=== PATIENT | male | born 2000 | race Caucasian/White ===

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

== ENCOUNTER 2019-04-16 08:35 | Emergency (ER) | payer OTHER ==
[~2019-04-16] VITALS: Ht 185.4 cm; Wt 63.5 kg
--- NOTE | ~2019-04-16 | EKG ---
[place], [place] ELECTROCARDIOGRAM REPORT NAME: MELANIE PARMAR UNIT #: [id number] ROOM: DOCTOR: EPIPHANY DRAFT REPORT BIRTHDATE: [birth year] [facility] Test Date: 2019-04-16 Test Time: 08:45:56 Pat Name: MELANIE PARMAR Department: Room: Gender: M [employer]: : 2000 Requested By: DANY IVEY Order Number: [id number] Reading MD: Raj Jackson MD Measurements Intervals [place] Rate: 52 P: 41 MS: 186 QRS: 37 QRSD: 110 T: 50 QT: 453 QTc: 422 Interpretive Statements Sinus arrhythmia Nonspecific ST T changes Electronically Signed On 04-18-2019 4:13:36 PDT by Raj Jackson MD CM:EKGRPT:ELECTROCARDIOGRAM REPORT [id number] DANY IVEY MD EPIPHANY DRAFT REPORT DANY IVEY MD
[2019-04-16 08:55] LABS: BASO % 0.3 % (0.0-1.0); EOS # 0.1 10*3/uL (0.0-0.4); HEMATOCRIT 39.2 % (42.0-52.0); HEMOGLOBIN 13.6 g/dl (14.0-18.0); LYMPH # 2.8 10*3/uL (1.3-4.4); LYMPH % 28.7 % (27.0-41.0); MEAN CELL VOLUME 88.5 fl (80.0-94.0); MEAN CORPUSCULAR HGB 30.7 pg (27.0-31.0); MEAN CORPUSCULAR HGB CONC 34.7 g/dl (33.0-37.0); MEAN PLATELET VOLUME 10.7 fl (9.6-12.3); MONO # 1.1 10*3/uL (0.1-1.0); MONO % 11.2 % (3.0-9.0); NEUT # 5.7 10*3/uL (2.3-7.9); NEUT % 58.6 % (47.0-73.0); PLATELET COUNT AUTOMATED 220 10*3/uL (130-400); RED BLOOD COUNT 4.43 10*6/uL (4.50-5.90); RED CELL DISTRI WIDTH 11.9 % (0-14.5); WHITE BLOOD COUNT 9.8 10*3/uL (4.8-10.8)
[2019-04-16 09:11] LABS: ACT PARTIAL THROMBO TIME 29.3 SECONDS (20.0-32.1)
[2019-04-16 09:14] LABS: ALBUMIN 4.5 gm/dl (3.1-4.5); ALKALINE PHOSPHATASE 93 U/L (45-117); BUN 22 mg/dl (7-24); CHLORIDE 106 mmol/L (98-107); POTASSIUM 3.5 mmol/L (3.5-5.1); SGOT/AST 16 IU/L (3-35); SGPT/ALT 17 U/L (12-78); SODIUM 139 mmol/L (136-145); TOTAL PROTEIN 7.5 gm/dL (6.4-8.2)
[2019-04-16 09:19] LABS: TROPONIN I < 0.015 ng/ml (<0.045)
[2019-04-16 11:24] LABS: URINE AMPHETAMINES < 1000 (1000ng/ml); URINE BARBITURATES < 200 (200ng/ml); URINE BENZODIAZEPINES < 200 (200ng/ml); URINE CANNABINOIDS (THC) > 50 (50ng/ml); URINE COCAINE < 300 (300ng/ml); URINE METHADONE < 300 (300ng/ml); URINE OPIATES < 300 (300ng/ml)
[2019-04-16 11:26] LABS: URINE PHENCYCLIDINE < 25 (25ng/ml)
== END 2019-04-16 11:43 | disposition home or self-care (01) ==
LOC: ED 08:35
PROVIDERS: Emergency Medicine
DX: R42 Dizziness and giddiness (principal); R55 Syncope and collapse; R07.89 Other chest pain; R06.02 Shortness of breath; R00.1 Bradycardia, unspecified; F17.200 Nicotine dependence, unspecified, uncomplicated; F12.10 Cannabis abuse, uncomplicated; R11.10 Vomiting, unspecified

== ENCOUNTER 2023-02-16 21:57 | Emergency (ER) | payer OTHER ==
[~2023-02-16] VITALS: Ht 187.9 cm; Wt 61.2 kg
[2023-02-16 22:27] LABS: BASO % 0.4 % (0.0-1.0); EOS % 0.4 % (1.0-4.0); HEMATOCRIT 41.9 % (42.0-52.0); LYMPH # 1.8 10*3/uL (1.3-4.4); LYMPH % 33.3 % (27.0-41.0); MEAN CORPUSCULAR HGB 30.3 pg (27.0-31.0); MEAN CORPUSCULAR HGB CONC 34.4 g/dl (33.0-37.0); MEAN PLATELET VOLUME 10.4 fl (9.6-12.3); MONO # 0.5 10*3/uL (0.1-1.0); MONO % 9.4 % (3.0-9.0); NEUT # 3.1 10*3/uL (2.3-7.9); NEUT % 56.3 % (47.0-73.0); PLATELET COUNT AUTOMATED 237 10*3/uL (130-400); RED BLOOD COUNT 4.76 10*6/uL (4.50-5.90); RED CELL DISTRI WIDTH 11.8 % (0-14.5); WHITE BLOOD COUNT 5.4 10*3/uL (4.8-10.8)
[2023-02-16 22:49] LABS: ALKALINE PHOSPHATASE 79 U/L (46-116); BUN 8 mg/dl (9-23); CHLORIDE 104 mmol/L (98-107); POTASSIUM 3.6 mmol/L (3.4-5.1); SGPT/ALT 18 U/L (10-49)
[2023-02-16] MEDS ORDERED: CEPHALEXIN500 M1 PO (23:10)
== END 2023-02-16 23:32 | disposition home or self-care (01) ==
LOC: ED 21:57
PROVIDERS: Internal Medicine
DX: T23.202A Burn of second degree of left hand, unspecified site, initial encounter (principal); J45.909 Unspecified asthma, uncomplicated; T31.0 Burns involving less than 10% of body surface; X08.8XXA Exposure to other specified smoke, fire and flames, initial encounter; Y93.89 Activity, other specified; Y92.89 Other specified places as the place of occurrence of the external cause; Y99.0 Civilian activity done for income or pay